=== PATIENT | male | born 1985 | race African-American/Black ===

== ENCOUNTER 2024-09-27 03:32 | Emergency (ER) | payer MEDICAID ==
[~2024-09-27] VITALS: Ht 182.9 cm; Wt 91.0 kg
[2024-09-27 03:34] VITALS: O2SAT 96
[2024-09-27] MEDS: IBUPROFEN 600MG TABLET PO ONE (04:37)
[2024-09-27] MEDS: LIDOCAINE 5% PATCH TOP SCH (04:38)
[2024-09-27] MEDS ORDERED: LIDO-53 TP (04:43)
[2024-09-27] MEDS ORDERED: NAPR-1176 MT (04:43)
[2024-09-27 05:00] VITALS: BP 137/85; PULSE 73; RESP 20; TEMP 36.7; O2SAT 100
== END 2024-09-27 04:58 | disposition home or self-care (01) ==
LOC: ER 03:46
DX: M94.0 Chondrocostal junction syndrome [Tietze] (principal)
CPT/HCPCS: 71045; 99283